=== PATIENT | male | born 1955 | race Caucasian/White ===

== ENCOUNTER 2024-03-01 11:44 | Emergency (ER) | payer MEDICARE, SELFPAY ==
[2024-03-01 11:45] VITALS: BMI 35.6
--- NOTE | 2024-03-01 11:51 | EKG_ITS ---
[facility] Test Date: 2024-03-01 Pat Name: JOAN SHAW Department: Room: - Gender: Male Slider Assembler: : 1955 Requested By: Marino Dean (COLIN) Order Number: [id number] Reading MD: Marino Dean (PAINT BRUSH MAKER) Measurements Intervals [place] Rate: 116 P: AR: QRS: -12 QRSD: 78 T: 48 QT: 297 QTc: 413 Interpretive Statements ATRIAL FIBRILLATION WITH RAPID VENTRICULAR RESPONSE ABNORMAL RHYTHM ECG No previous ECG available for comparison /store/S0/[id number]
[2024-03-01 12:02] VITALS: BP 151/86; PULSE 116; RESP 19; TEMP 36.6; O2SAT 97
--- NOTE | 2024-03-01 12:09 | XR_ITS ---
Examination: AP chest single view Technique one AP portable upright chest single view Exam date and time: March 01, 2024 1214 hours INDICATIONS: New onset atrial fibrillation today with SOB Normal heart size No pulmonary edema or pneumonia Moderate osteopenia IMPRESSION: No pneumonia or pulmonary edema
--- NOTE | 2024-03-01 12:29 | EDNOTE_ITS ---
ED General RME/HPI General Chief complaint: General Adult/Misc Complain Stated complaint: SENT IN FOR NEW A.FIB Time Seen by Provider: 03/01/24 11:49 Arrival date/time: 03/01/24 11:44 CC: A-fib new onset HPI patient was at his annual physical exam with his primary care provider who referred him to the emergency room for A-fib. Patient has no symptoms including chest pain shortness of breath difficulty breathing patient states his last exam was on January 28 when he had a normal heart rate of 89 . Patient is awake alert oriented nontoxic-appearing not in any acute distress. Related Data Home Medications ?Medication ?Instructions ?Recorded ?Confirmed acetaminophen 500 mg tablet 500 mg PO QDAY 09/02/23 09/02/23 gabapentin 800 mg tablet 800 mg PO QDAY 09/02/23 09/02/23 trazodone 50 mg tablet 50 mg PO QDAY 09/02/23 09/02/23 Previous Rx's ?Medication ?Instructions ?Recorded apixaban 5 mg tablet (Eliquis) 5 mg PO BID #30 tabs 03/01/24 metoprolol tartrate 25 mg tablet 25 mg PO BID #30 tabs 03/01/24 Allergies Allergy/AdvReac Type Severity Reaction Status Date / Time No Known Allergies Allergy Verified 03/01/24 11:46 Review of Systems Review of Systems Narrative Review of Systems: GEN: No fever, no chills, no weight loss EYES: No discharge, no visual changes, no pain HEENT: No ear pain, no congestion, no sore throat PULM: No shortness of breath, no cough, no congestion CV: No chest pain, no dyspnea on exertion, no palpitations GI: No nausea, no vomiting, no diarrhea, no pain, no constipation : No frequency, no urgency, no dysuria MUSC/SKEL: No joint pain, no back pain SKIN: No rash PSYCH: No hallucinations, no depression HEME/LYMPH: No easy bleeding or bruising tendencies NEURO: No weakness, no headache Past Medical History Past Medical History NEUROLOGIC: Positive Peripheral Neuropathy; Negative Neurological Disorders or Seizures CARDIAC: Negative Cardiac Disorders or Congestive Heart Failure RESPIRATORY: Positive Sleep Apnea (uses CPAP QHS); Negative Chronic Obstructive Pulmonary Disease (COPD) GENITOURINARY: Positive Kidney Stones (resolved); Negative Renal Disease MUSCULOSKELETAL: Positive Arthritis, Carpal Tunnel Syndrome (bilateral, trigger finger both hands) and Fractures (right ankle sx) ENDOCRINE: Negative Diabetes Mellitus Type 1 or Diabetes Mellitus Type 2 PSYCHO/SOCIAL: Negative Depression or Anxiety OTHER HISTORY: Positive Chicken Pox, Measles and Mumps; Negative Blood Transfusions or Anesthesia Reactions Social History SMOKING STATUS: Never smoker ED Exam Narrative Physical exam: [General: Obese not in any acute distress Head normocephalic HEENT: Within acceptable limits Neck is supple nontender Chest equal chest rise nontender to palpation Respiratory: Clear to auscultation no wheezes crackles or rubs CV: Rate rhythm is regular no murmurs rubs or clicks Abdomen is distended secondary to body habitus soft nontender no masses positive bowel sounds all 4 quadrants Back: No CVA tenderness no spinous process tenderness from cervical spine thoracic and lumbar spine Skin: Intact no petechiae rash induration ulceration or crepitus Extremities: Moving all extremity against resistance cap refill less than 2 seconds neurosensory intact. No lower extremity edema Neuro: Awake alert oriented x3 Glascow coma 15 no focal deficits] Course Quality Measures none Orders Category Date Time Status EKG (ED ONLY) *Do not use* NOW Care 03/01/24 11:51 Completed Insert IV NOW Care 03/01/24 12:25 Completed EKG (ED Only) Stat Exams 03/01/24 11:51 Draft XR chest 1V Stat Exams 03/01/24 12:09 Completed B-Type Natriuretic Peptide Stat Lab 03/01/24 12:42 Completed CBC Stat Lab 03/01/24 12:42 Completed Comprehensive Metabolic Panel Stat Lab 03/01/24 12:42 Completed LDH (Lactate Dehydrogenase) Stat Lab 03/01/24 12:42 Completed Magnesium Stat Lab 03/01/24 12:42 Completed Partial Thromboplastin Time Stat Lab 03/01/24 12:42 Completed Prothrombin Time with INR Stat Lab 03/01/24 12:42 Completed Troponin I Stat Lab 03/01/24 12:42 Completed Apixaban [Eliquis] Med 03/01/24 12:26 Discontinued 5 mg PO X1 ONE Metoprolol Tartrate Inj [Lopressor Inj] Med 03/01/24 12:21 Discontinued 2 mg IVP X1 ONE Metoprolol Tartrate [Lopressor] Med 03/01/24 12:21 Discontinued 25 mg PO X1 ONE Vital Signs Vital signs: Vital Signs Temperature 97.9 F 03/01/24 12:02 Pulse Rate 116 H 03/01/24 12:02 Respiratory Rate 19 03/01/24 12:02 Blood Pressure 151/86 H 03/01/24 12:02 Pulse Oximetry (%) 97 03/01/24 12:02 Oxygen Delivery Method Room Air 03/01/24 12:02 [facility] Patient data External records reviewed:: [facility] previous records Clinical information provided by:: patient Social determinants that could affect healthcare access:: none Patient has the following chronic illnesses:: Chronic back pain How is presenting disease/condition affected by chronic disease/condition?: u neffected by Evaluation data The following diagnostics were reviewed and interpreted by me:: lab results, radiology exam(s) and EKG tracing(s) Lab and/or radiology exams considered but not ordered:: EKG performed at 1158 shows a ventricular rate of 116 QRS of 70, QTc of 366 is A-fib RVR. No old EKG for comparison. Interpretation Summary: A-fib new onset Medications Medications considered but not ordered:: None Medication administrations:: Medication Administration History Discontinued Medications Apixaban (Apixaban 2.5 Mg Tablet) 5 mg PO X1 ONE Stop: 03/01/24 12:27 Last Admin: 03/01/24 12:54 Dose: 5 mg Documented By: Metoprolol Tartrate (Metoprolol Tartrate 25 Mg Tablet) 25 mg PO X1 ONE Stop: 03/01/24 12:22 Last Admin: 03/01/24 12:48 Dose: 25 mg Documented By: Metoprolol Tartrate (Metoprolol Tartrate Inj 1 Mg/Ml Amp 5 Ml) 2 mg IVP X1 ONE Stop: 03/01/24 12:22 Last Admin: 03/01/24 12:47 Dose: 2 mg Documented By: MS None Consultations Consultation(s) initiated? (list below): No Diagnosis Differential Diagnosis ED Complaint MDM: ACS MO pneumonia Most likely diagnosis given after review of the tests above:: Weakness Admission Indicated Admission indicated?: not indicated Explain why admission is indicated or not indicated:: Stable for outpatient follow-up Admission Request Was there a request for admission?: No Disposition Plan Disposition Plan: Discharge Discharge Attestation Discharge Attestation: The patient and all family members were given an opportunity to ask questions and understood the discharge instructions. Discharge instructions specifically effects, indications for sooner follow up or return to the emergency department, and the expected course of current diagnosis. Patient condition: Stable Medical Decision Making Differential Diagnosis Differential Diagnosis: ACS MO pneumonia Lab Data 03/01/24 12:42 03/01/24 12:42 Labs: Lab Results 03/01/24 Range/Units 12:42 WBC 6.4 (3.8-10.6) Thou/mm3 RBC 5.15 (4.50-5.90) Miln/mm3 Hgb 16.1 H (13.5-16.0) g/dL Hct 46.1 (41.0-53.0) % MCV 90 (80-100) fL MCH 31.3 (25.0-35.0) pg MCHC 34.9 (31.0-37.0) g/dl RDW Std Deviation 41.4 (35.1-43.9) fL Plt Count 202 (140-440) Thou/mm3 Neut % (Auto) 57 (37-80) % Lymph % (Auto) 30 (10-50) % [place] % (Auto) 10 (0-12) % Eos % (Auto) 3 (0-10) % Baso % (Auto) 0 (0-2.5) % Neut # (Auto) 3.7 (1.8-7.7) Thou/mm3 Lymph # (Auto) 1.9 (1.0-4.8) Thou/mm3 [place] # (Auto) 0.6 (0.0-0.8) Thou/mm3 Eos # (Auto) 0.2 (0.0-0.5) Thou/mm3 Baso # (Auto) 0.0 (0.0-0.2) Thou/mm3 Immature Gran # (Auto) 0.01 H (0.00-0.00) Thou/mm3 Absolute Nucleated RBC 0.00 (0.00-0.00) Thou/mm3 Immature Gran % 0 (0-0) % Nucleated RBC % 0 (0) /100 WBC PT 11.8 (9.0-12.2) Seconds INR 1.1 (0.9-1.3) APTT 25.1 (22.0-36.0) Seconds Sodium 136 (136-145) mMol/L Potassium 4.7 (3.4-5.1) mMol/L Chloride 103 (98-107) mMol/L Carbon Dioxide 25.6 (20.0-31.0) mMol/L Anion Gap 7 (7-16) BUN 16 (9-23) mg/dL Creatinine 1.2 (0.6-1.3) mg/dL Estim Creat Clear Calc 76.4 (>60) mL/min eGFR > 60 (60 - ) See Note BUN/Creatinine Ratio 13 (12-20) Ratio Glucose 113 H (74-106) mg/dL Calculated Osmolality 274 L (275-295) Calcium 9.9 (8.3-10.6) mg/dL Corrected Calcium 9.9 (8.5-10.1) mg/dL Magnesium 1.9 (1.6-2.6) mg/dL Total Bilirubin 0.7 (0.3-1.2) mg/dL AST 26 (0-34) U/L ALT 42 (10-49) U/L Alkaline Phosphatase 42 L (46-116) U/L Lactate Dehydrogenase 234 (120-246) U/L Troponin I < 0.020 (0.0-0.045) ng/mL B-Natriuretic Peptide 91 (0-100) pg/mL Total Protein 7.3 (5.7-8.2) gm/dL Albumin 4.7 (3.4-4.8) gm/dL Globulin 2.6 (2.3-3.5) gm/dL Albumin/Globulin Ratio 1.8 (1.2-2.2) Discharge Plan Plan Patient Disposition: HOME (Self Care) Patient condition on transfer: Stable Prescriptions/Referrals Prescriptions/Med Rec: New metoprolol tartrate 25 mg tablet 25 mg PO BID Qty: 30 1RF Eliquis 5 mg tablet 5 mg PO BID Qty: 30 1RF No Action trazodone 50 mg tablet 50 mg PO QDAY Hold Instructions: Resume on 09/03/23. MAY RESUME IN 24 HOURS acetaminophen 500 mg Tablet 500 mg PO QDAY Hold Instructions: Resume on 09/03/23. MAY RESUME IN 24 HOURS gabapentin 800 mg tablet 800 mg PO QDAY Patient Comments: 1 TABLET ORALLY EVERY 8 HOURS 90 DAYS Referrals: Christophe Tanner MD [Physician] - In 1 week Lisa Miller NP [Primary Care Provider] - In 1 week Problem List Clinical Impression: Atrial fibrillation with RVR Patient/Caregiver Discharge Instructions Education Materials: AFL/Afib, Calcium Channel Blockers Dc, ED Atrial Fibrillation Additional Instructions: Take the medications as prescribed follow-up with your primary care provider if there is any source of bleeding which includes bleeding from the nose from the tip of the penis, or black tarry or bright red stools from the rectum return the emergency room for reevaluation. Print Language: Honduran Stand Alone Forms: Erica Award Info., Work/School Release, Patient Portal Info Letter PA/SCREW MACHINE SET UP OPERATOR TOOL Supervising Physician PA/ERLINDA Supervising Physician: Bryan Dominguez ENP
[2024-03-01 12:47] VITALS: BP 141/91; PULSE 110
[2024-03-01] MEDS: METOPROLOL TARTRATE INJ 1 MG/ML AMP 5 ML 2 MG IVP (12:47)
[2024-03-01 12:48] VITALS: BP 141/91; PULSE 118
[2024-03-01] MEDS: METOPROLOL TARTRATE 25 MG TABLET PO (12:48)
[2024-03-01] MEDS: APIXABAN 2.5 MG TABLET 5 MG PO (12:54)
[2024-03-01 12:57] LABS: Basophils % (Auto) 0 % (0-2.5); Eosinophils # (Auto) 0.2 Thou/mm3 (0.0-0.5); Eosinophils % (Auto) 3 % (0-10); Hematocrit 46.1 % (41.0-53.0); Hemoglobin 16.1 g/dL (13.5-16.0); Immature Granulocytes % (Auto) 0 % (0-0); Immature Granulocytes Auto 0.01 Thou/mm3 (0.00-0.00); Lymphocytes # (Auto) 1.9 Thou/mm3 (1.0-4.8); Lymphocytes % (Auto) 30 % (10-50); Mean Corpuscular HGB Conc 34.9 g/dl (31.0-37.0); Mean Corpuscular Hemoglobin 31.3 pg (25.0-35.0); Mean Corpuscular Volume 90 fL (80-100); Monocytes # (Auto) 0.6 Thou/mm3 (0.0-0.8); Monocytes % (Auto) 10 % (0-12); Neutrophils # (Auto) 3.7 Thou/mm3 (1.8-7.7); Neutrophils % (Auto) 57 % (37-80); Nucleated Red Blood Cell % 0 /100 WBC (0); Platelet Count 202 Thou/mm3 (140-440); RDW Standard Deviation 41.4 fL (35.1-43.9); Red Blood Count 5.15 Miln/mm3 (4.50-5.90); White Blood Count 6.4 Thou/mm3 (3.8-10.6)
[2024-03-01 13:10] LABS: INR 1.1 (0.9-1.3); Partial Thromboplastin Time 25.1 Seconds (22.0-36.0); Prothrombin Time 11.8 Seconds (9.0-12.2)
[2024-03-01 13:19] LABS: Alanine Aminotransferase 42 U/L (10-49); Albumin, Serum 4.7 gm/dL (3.4-4.8); Albumin/Globulin Ratio 1.8 (1.2-2.2); Alkaline Phosphatase 42 U/L (46-116); Anion Gap 7 (7-16); Aspartate Amino Transferase 26 U/L (0-34); BUN/Creatinine Ratio 13 Ratio (12-20); Bilirubin,Total 0.7 mg/dL (0.3-1.2); Blood Urea Nitrogen 16 mg/dL (9-23); Calcium 9.9 mg/dL (8.3-10.6); Calcium (Corrected) 9.9 mg/dL (8.5-10.1); Carbon Dioxide 25.6 mMol/L (20.0-31.0); Chloride 103 mMol/L (98-107); Creatinine (Component) 1.2 mg/dL (0.6-1.3); Estimated Creatinine Clearance 76.4 mL/min (>60); Globulin 2.6 gm/dL (2.3-3.5); Glucose 113 mg/dL (74-106); LDH (Lactate Dehydrogenase) 234 U/L (120-246); Magnesium 1.9 mg/dL (1.6-2.6); Osmolality,Calculated 274 (275-295); Potassium 4.7 mMol/L (3.4-5.1); Sodium 136 mMol/L (136-145); Total Protein 7.3 gm/dL (5.7-8.2); Troponin I < 0.020 ng/mL (0.0-0.045); eGFR > 60 See Note
[2024-03-01 13:49] LABS: B-Type Natriuretic Peptide 91 pg/mL (0-100)
[2024-03-01 14:00] VITALS: BP 112/72; PULSE 80; RESP 17; O2SAT 97
== END 2024-03-01 15:22 | disposition home or self-care (01) ==
PROVIDERS: Registered Nurse General Practice; Emergency Provider Emergency Medicine; PCP Nurse Practitioner Family
DX: I48.91 Unspecified atrial fibrillation (principal)
CPT/HCPCS: 36415; 71045; 80053; 80307; 81001; 83615; 83735; 83880; 84484; 85025; 85610; 85730; 93005; 96374; 99284; J3490; A9270

== ENCOUNTER → 2024-03-09 | Outpatient (CLI) | payer MEDICARE, SELFPAY ==
[2024-03-09 13:52] LABS: Troponin I < 0.020 ng/mL (0.0-0.045)
== END | disposition home or self-care (01) ==
LOC: COPL 12:09
PROVIDERS: PCP Nurse Practitioner Family; Referring Provider Nurse Practitioner Family; Visit Provider Nurse Practitioner Family
DX: I48.91 Unspecified atrial fibrillation (principal)
CPT/HCPCS: 36415; 84484

== ENCOUNTER 2024-04-14 09:01 | Outpatient (CLI) | payer MEDICARE, SELFPAY ==
--- NOTE | 2024-04-13 15:48 | EKG_ITS ---
[facility] Test Date: 2024-04-13 Pat Name: JOAN SHAW Department: Room: - Gender: Male Auto Camp Attendant: RICHA : 1955 Requested By: Christophe Tanner Order Number: [id number] Reading MD: Christophe Tanner Measurements Intervals [place] Rate: 84 P: [place]: QRS: 34 QRSD: 84 T: 47 QT: 356 QTc: 421 Interpretive Statements ATRIAL FIBRILLATION ABNORMAL RHYTHM ECG Compared to ECG 03/01/2024 11:58:05 No significant changes /store/S0/[id number]/[id number].pdf
[2024-04-13 16:51] LABS: Basophils % (Auto) 0 % (0-2.5); Eosinophils # (Auto) 0.2 Thou/mm3 (0.0-0.5); Eosinophils % (Auto) 3 % (0-10); Hematocrit 45.5 % (41.0-53.0); Immature Granulocytes % (Auto) 0 % (0-0); Immature Granulocytes Auto 0.02 Thou/mm3 (0.00-0.00); Lymphocytes # (Auto) 2.1 Thou/mm3 (1.0-4.8); Lymphocytes % (Auto) 28 % (10-50); Mean Corpuscular HGB Conc 35.2 g/dl (31.0-37.0); Mean Corpuscular Hemoglobin 31.2 pg (25.0-35.0); Mean Corpuscular Volume 89 fL (80-100); Monocytes # (Auto) 0.8 Thou/mm3 (0.0-0.8); Monocytes % (Auto) 11 % (0-12); Neutrophils # (Auto) 4.3 Thou/mm3 (1.8-7.7); Neutrophils % (Auto) 58 % (37-80); Nucleated Red Blood Cell % 0 /100 WBC (0); Platelet Count 202 Thou/mm3 (140-440); RDW Standard Deviation 39.5 fL (35.1-43.9); Red Blood Count 5.13 Miln/mm3 (4.50-5.90); White Blood Count 7.5 Thou/mm3 (3.8-10.6)
[2024-04-13 17:11] LABS: Partial Thromboplastin Time 24.8 Seconds (22.0-36.0); Prothrombin Time 11.4 Seconds (9.0-12.2)
[2024-04-13 17:15] LABS: Anion Gap 5 (7-16); BUN/Creatinine Ratio 17 Ratio (12-20); Blood Urea Nitrogen 24 mg/dL (9-23); Calcium 9.9 mg/dL (8.3-10.6); Carbon Dioxide 34.6 mMol/L (20.0-31.0); Chloride 99 mMol/L (98-107); Creatinine (Component) 1.4 mg/dL (0.6-1.3); Glucose 88 mg/dL (74-106); Osmolality,Calculated 280 (275-295); Potassium 4.5 mMol/L (3.4-5.1); Sodium 139 mMol/L (136-145); eGFR 54 See Note
[2024-04-14] VITALS (15 sets, daily range): BP systolic 103–135; BP diastolic 59–85; PULSE 60–85; RESP 10–19; TEMP 36.2–36.8; O2SAT 90–99; BMI 35.2
[2024-04-14] MEDS: APIXABAN 2.5 MG TABLET 5 MG PO (09:30)
--- NOTE | 2024-04-14 10:30 | ECHO_ITS ---
Transesophageal Echo Report Ht (in): 73 Wt (lb): 260 Exam Location: Can Intake Worker Status: Outpatient Recyclable Materials Sorter: Swati Santos Indications: Procedure Performed: BP: 125 / 63 HR: 76 Contrast: Agitated Saline Rhythm: Atrial fibrillation Technical Quality: Fair Total Dose(mL): Medications The patient is medicated with 4mg of intravenous Versed adn 100mcg of intravenous Fentanyl. Complications There are no complications prior to, during of in recovery from the transesophageal echocardiogram. FINDINGS Left Ventricle Normal left ventricular size, wall thickness, systolic function with no obvious regional wall motion abnormalities. The ejection fraction is visually estimated at 55-60%. Right Ventricle The right ventricle is normal in size and systolic function. Left Atrium The left atrium is normal. Right Atrium The right atrium is normal. Atrial Appendages The left atrial appendage appears normal with no evidence for thrombus. Atrial Septum The interatrial septum appears normal with no evidence of a shunt. Aorta The aorta is normal. Mitral Valve The mitral valve is normal. There is mild mitral valve regurgitation. Aortic Valve The aortic valve is trileaflet and normal. There is no significant aortic valve regurgitation. Tricuspid Valve The tricuspid valve is normal. There is trace tricuspid valve regurgitation. Pulmonic Valve The pulmonic valve is normal. There is mild pulmonic valve regurgitation. Vessels The pulmonary artery appears normal. The inferior vena cava pulmonary and hepatic veins appear pedro l. Pericardium The pericardium is normal. There is no significant pericardial effusion. CONCLUSIONS Indication: Afib and cardioversion Negative bubble study. No evidence of PFO/ ASD or LA/ALEXY thrombus Normal LV size and function. Estimated EF 55-60% Normal RV size and function Mild MR, PI. Trace TR. Systolic blunting of pulmonary james flow. Christophe Tanner (Electronically Signed) Final Date: 14 April 2024 18:54
[2024-04-14] MEDS: MIDAZOLAM INJ 1 MG/ML VIAL 2 ML 6 MG IV (10:35)
[2024-04-14] MEDS: BENZOCAINE 20% (Hurricaine) SPRAY 1 DOSE TOP (10:35)
[2024-04-14] MEDS: fentaNYL CIT INJ 50 mCg/ML AMP 2ML 125 MCG IVP (10:35)
--- NOTE | 2024-04-14 11:10 | ESOP_ITS ---
Procedure Direct current cardioversion for uncontrolled atrial Fibrillation Moderate Conscious Sedation with Versed and Fentanyl Date of Procedure 04/14/24 Pre Op Diagnosis Paroxysmal Atrial Fibrilllation Indication Paroxysmal Atrial Fibrilllation Post Op Diagnosis Normal Sinus Rhythm restored. Procedure Description Patient was in atrial fibrillation and ventricular rate was controlled came in for elective cardioversion. Decision was made to perform cardioversion for the patient after performing it transesophageal echocardiogram as patient has been having significant symptoms from the Afib. Transesophageal echocardiogram was completed today and did not show any significant LA or ALEXY thrombus.? Please see HELIO report from today for rest of the findings.? Patient was already on anticoagulation with eliquis. Patient was taken to the cathode ray tube salvage processor for the HELIO and cardioversion, both anterior and posterior pads were placed.? Patient was given moderate sedation and received a total of 2 mg of Versed and 25 mcg of fentanyl prior to the procedure to provide him enough for sedation. A biphasic defibrillator was used.? A single 120 J synchronized shock was given and the patient converted successfully into normal sinus rhythm.? No complications during or after the procedure.? Patient is doing well.? His heart rate was stable between 50 to 70 bpm and appears to be normal sinus rhythm on the telemetry.? Recommend to perform an EKG to document normal sinus rhythm postprocedure.? Patient will be monitored in the cathode ray tube salvage processor for the next 1-2 hours and will be discharged home if hemodynamically stable. Will adjust his medications for atrial fibrillationas outpatient. Estimated Blood Loss 0 Specimen(s) Specimen(s): None Conclusion Successful direct current cardioversion of Atrial Fibrillation to Normal Sinus Rhythm Recommendation Continue metoprolol XL 50 mg Q Day if BP stable. Continue Eliquis 5 mg BID for anticaogulation. EKG to document NSR post procedure. Surgical Staff Surgeon: Christophe Tanner MD
--- NOTE | 2024-04-14 11:44 | EKG_ITS ---
[facility] Test Date: 2024-04-14 Pat Name: JOAN SHAW Department: Room: - Gender: Male Cap Cutter: HERIBERTO : 1955 Requested By: Christophe Tanner Order Number: [id number] Reading MD: Christophe Tanner Measurements Intervals [place] Rate: 60 P: 79 [place]: 236 QRS: 3 QRSD: 90 T: 6 QT: 421 QTc: 421 Interpretive Statements SINUS RHYTHM WITH FIRST DEGREE AV BLOCK Compared to ECG 04/13/2024 16:04:56 First degree AV block now present Atrial fibrillation no longer present /store/S0/[id number]/[id number]
== END 2024-04-14 10:15 | disposition home or self-care (01) ==
LOC: S2EX 09:01 → SCCL 09:07
PROVIDERS: PCP Nurse Practitioner Family; Referring Provider Internal Medicine Cardiovascular Disease; Visit Provider Internal Medicine Cardiovascular Disease
PROC: 5A2204Z Restoration of Cardiac Rhythm, Single (ICD-10-PCS; CPT 92960; principal; 2024-04-14 10:30)
PROC: (CPT 93312; 2024-04-14 10:30)
DX: I48.91 Unspecified atrial fibrillation (principal); Z01.810 Encounter for preprocedural cardiovascular examination
CPT/HCPCS: 92960; 36415; 80048; 83735; 85025; 85610; 85730; 93005; 93312; 99152; J2250; J3010; A9270

== ENCOUNTER → 2024-07-05 | Outpatient (CLI) | payer MEDICARE, SELFPAY ==
[2024-07-05 17:03] LABS: Glucose Estimated Average 117 mg/dL (80-131); Hemoglobin A1C 5.7 % Hgb (4.8-6.0)
[2024-07-06 06:35] LABS: Vitamin B12 831 pg/mL (211-911); Vitamin D 25 Hydroxy Total 44.6 ng/mL (7.3-40.2)
== END | disposition home or self-care (01) ==
LOC: COPL 15:57
PROVIDERS: PCP Nurse Practitioner Family; Referring Provider Psychiatry & Neurology Neurology; Visit Provider Psychiatry & Neurology Neurology
DX: R20.2 Paresthesia of skin (principal)
CPT/HCPCS: 36415; 82306; 82607; 83036

== ENCOUNTER → 2024-08-18 | Outpatient (CLI) | payer MEDICARE, SELFPAY ==
[2024-08-18 11:25] LABS: Collection Type, Urine Clean Catch; RBC,Urine 0 /hpf (0-3); Squamous Epithelial Cell,Urine 0 /hpf (0-5)
[2024-08-18 11:41] LABS: Bilirubin,Urine Negative (Negative); Blood,Urine Negative (Negative); Clarity,Urine Clear (Clear/Hazy); Color,Urine Lt-Yellow (Lt Yel-Yel); Culture Indicated,Urine Not Indicated; Glucose, Urine Negative (Negative); Ketones,Urine Negative (Negative); Leukocyte Esterase,Urine Negative (Negative); Nitrite,Urine Negative (Negative); Protein,Urine Negative (Neg - Trace); Specific Gravity,Urine 1.023 (1.001-1.035); Urobilinogen,Urine Negative mg/dL (0.0-1.0); WBC,Urine < 1 /hpf (0-5)
[2024-08-18 11:41] LABS: Basophils % (Auto) 0 % (0-2.5); Eosinophils # (Auto) 0.2 Thou/mm3 (0.0-0.5); Eosinophils % (Auto) 3 % (0-10); Hematocrit 43.4 % (41.0-53.0); Hemoglobin 15.8 g/dL (13.5-16.0); Immature Granulocytes % (Auto) 0 % (0-0); Immature Granulocytes Auto 0.02 Thou/mm3 (0.00-0.00); Lymphocytes # (Auto) 1.5 Thou/mm3 (1.0-4.8); Lymphocytes % (Auto) 28 % (10-50); Mean Corpuscular HGB Conc 36.4 g/dl (31.0-37.0); Mean Corpuscular Hemoglobin 32.6 pg (25.0-35.0); Mean Corpuscular Volume 90 fL (80-100); Monocytes # (Auto) 0.6 Thou/mm3 (0.0-0.8); Monocytes % (Auto) 11 % (0-12); Neutrophils # (Auto) 3.1 Thou/mm3 (1.8-7.7); Neutrophils % (Auto) 57 % (37-80); Nucleated Red Blood Cell % 0 /100 WBC (0); Platelet Count 170 Thou/mm3 (140-440); RDW Standard Deviation 40.2 fL (35.1-43.9); Red Blood Count 4.85 Miln/mm3 (4.50-5.90); White Blood Count 5.4 Thou/mm3 (3.8-10.6)
[2024-08-18 11:56] LABS: Prostate Specific Antigen 0.62 ng/mL (0-4.00)
[2024-08-18 11:59] LABS: Alanine Aminotransferase 33 U/L (10-49); Albumin, Serum 4.3 gm/dL (3.4-4.8); Albumin/Globulin Ratio 1.7 (1.2-2.2); Alkaline Phosphatase 37 U/L (46-116); Anion Gap 10 (7-16); Aspartate Amino Transferase 28 U/L (0-34); BUN/Creatinine Ratio 14 Ratio (12-20); Bilirubin,Total 0.9 mg/dL (0.3-1.2); Blood Urea Nitrogen 17 mg/dL (9-23); Calcium 8.8 mg/dL (8.3-10.6); Calcium (Corrected) 8.8 mg/dL (8.5-10.1); Carbon Dioxide 28.1 mMol/L (20.0-31.0); Cardiac Risk Estimate 4.1 RATIO (4.0-6.7); Chloride 104 mMol/L (98-107); Cholesterol 145 mg/dL (132-200); Creatinine (Component) 1.2 mg/dL (0.6-1.3); Globulin 2.6 gm/dL (2.3-3.5); Glucose 122 mg/dL (74-106); HDL Cholesterol 35 mg/dL (40-60); LDL Cholesterol,Calculated 84 mg/dL (0-130); Osmolality,Calculated 285 (275-295); Potassium 4.4 mMol/L (3.4-5.1); Sodium 142 mMol/L (136-145); Thyroid Stimulating Hormone 0.97 uIU/mL (0.55-4.78); Total Protein 6.9 gm/dL (5.7-8.2); Triglycerides 132 mg/dL (30-150); eGFR > 60 See Note
== END | disposition home or self-care (01) ==
LOC: COPL 10:29
PROVIDERS: PCP Nurse Practitioner Family; Referring Provider Nurse Practitioner Family; Visit Provider Nurse Practitioner Family
DX: Z00.00 Encounter for general adult medical examination without abnormal findings (principal); I10 Essential (primary) hypertension; E78.1 Pure hyperglyceridemia
CPT/HCPCS: 36415; 80053; 80061; 81001; 84153; 84443; 85025

== ENCOUNTER 2024-09-15 10:02 | Day surgery (SDC) | payer MEDICARE, SELFPAY ==
[2024-09-13 15:19] VITALS: BMI 34.2
--- NOTE | 2024-09-14 07:00 | EKG_ITS ---
[facility] Test Date: 2024-09-14 Pat Name: JOAN SHAW Department: Room: - Gender: Male Immigration Inspector: JUANCARLOS : 1955 Requested By: Christophe Tanner Order Number: [id number] Reading MD: Christophe Tanner Measurements Intervals [place] Rate: 64 P: 52 MO: 226 QRS: -7 QRSD: 81 T: 32 QT: 397 QTc: 412 Interpretive Statements SINUS RHYTHM WITH FIRST DEGREE AV BLOCK Compared to ECG 04/14/2024 11:54:02 No significant changes /store/S0/[id number]/[id number].pdf
[2024-09-14 15:34] LABS: Anion Gap 5 (7-16); BUN/Creatinine Ratio 9 Ratio (12-20); Blood Urea Nitrogen 14 mg/dL (9-23); Calcium 9.6 mg/dL (8.3-10.6); Carbon Dioxide 34.1 mMol/L (20.0-31.0); Chloride 103 mMol/L (98-107); Creatinine (Component) 1.5 mg/dL (0.6-1.3); Estimated Creatinine Clearance 60.8 mL/min (>60); Glucose 84 mg/dL (74-106); Osmolality,Calculated 282 (275-295); Potassium 4.9 mMol/L (3.4-5.1); Sodium 142 mMol/L (136-145); eGFR 49 See Note
[2024-09-14 15:35] LABS: Basophils % (Auto) 0 % (0-2.5); Eosinophils # (Auto) 0.2 Thou/mm3 (0.0-0.5); Eosinophils % (Auto) 2 % (0-10); Hematocrit 44.8 % (41.0-53.0); Hemoglobin 16.5 g/dL (13.5-16.0); Immature Granulocytes % (Auto) 0 % (0-0); Immature Granulocytes Auto 0.01 Thou/mm3 (0.00-0.00); Lymphocytes % (Auto) 31 % (10-50); Mean Corpuscular HGB Conc 36.8 g/dl (31.0-37.0); Mean Corpuscular Hemoglobin 32.8 pg (25.0-35.0); Mean Corpuscular Volume 89 fL (80-100); Monocytes # (Auto) 0.9 Thou/mm3 (0.0-0.8); Monocytes % (Auto) 14 % (0-12); Neutrophils # (Auto) 3.3 Thou/mm3 (1.8-7.7); Neutrophils % (Auto) 52 % (37-80); Nucleated Red Blood Cell % 0 /100 WBC (0); Platelet Count 227 Thou/mm3 (140-440); RDW Standard Deviation 39.4 fL (35.1-43.9); Red Blood Count 5.03 Miln/mm3 (4.50-5.90); White Blood Count 6.4 Thou/mm3 (3.8-10.6)
[2024-09-14 15:55] LABS: Partial Thromboplastin Time 24.5 Seconds (22.0-36.0); Prothrombin Time 11.1 Seconds (9.0-12.2)
[2024-09-15] VITALS (17 sets, daily range): BP systolic 120–151; BP diastolic 59–89; PULSE 59–70; RESP 11–24; TEMP 36.2–37.2; O2SAT 96–99; BMI 34.0
--- NOTE | 2024-09-15 12:28 | PC.NURSE ---
1228 patient is awake, alert, breathing unlabored, s/p LHC by Dr. hall, TR band present to right wrist, no bleeding or hematoma noted, Report received from Courtney LUCAS, patient to recover for 4 hours and 1hr post TR band removal. patient to be started on aspirin and Brilinta.
--- NOTE | 2024-09-15 14:15 | PC.NURSE ---
spoke to Dr. hall's office staff who said they are calling in aspirin and brilinta to patient's pharmacy in [facility]
--- NOTE | 2024-09-15 14:55 | PC.NURSE ---
8754 Dr Tanner at bedside talking to patient and patient's family by phone, MD answer all questions, ok to discharge patient home 1hr post TR band removal
--- NOTE | 2024-09-15 15:13 | PC.NURSE ---
1425 1ml air removed from TR band since hemostasis time 1225. 1505 TR band removed, no bleeding or hematoma noted, site covered with tegaderm and coban
--- NOTE | 2024-09-15 15:27 | ESOP_ITS ---
Cardiac Cath Procedure Procedure Name Date of procedure: 09/15/2024 PROCEDURE PERFORMED: 1. Successful complex PCI performed of the proximal to mid LAD with a 3.0 x 12 mm Tyler Medtronic stent with excellent results and no complications. 2. Left heart cardiac catheterization including right, left coronary angiograms and left ventriculogram 3. Ultrasound-guided access of the right radial artery 4. Conscious sedation for 30 minutes SUPERVISOR DISPLAY FABRICATION: Christophe Tanner MD Procedure Narrative HISTORY AND INDICATIONS: 68 year old male with PMH A-fib, chronic diastolic CHF, mild TR, mild PI, AMY (pressure of 10), osteoarhtritis, and peripheral neuropathy. Patient had isch emic cardiac work up as he was complaining of chest pain. NST showed abnormal myocardial perfusion study as there was an area of decreased uptake in the inferior and apical segments with stress and improves with rest, indicating ischemia. The post stress ejection fraction is measured at 55%. All the risk benefits and alternatives of left heart cardiac attrition were explained in detail including the risk of bleeding, heart attack, stroke and in detail. Patient agreeable for the procedure and provided the consent. H&P updated. DESCRIPTION OF PROCEDURE: The patient was brought to the cardiac catheterization lab analysis the precautions were followed. Patient was given 1 Mg of Versed and 50 mcg of fentanyl for moderate conscious sedation. 2 mL of lidocaine was given in the right wrist. The right radial artery was accessed via the ultrasound guidance as well as micropuncture technique. A 6 Bhutanese glide sheath was introduced. We then used a 6 Bhutanese TIG 4 catheter to perform the left coronary angiogram as well as a left ventriculogram which showed the following findings. A JR 3.5 SH sidehole catheter was used for right coronary angiogram as well as performing the PCI of the ostial RCA. 1. Left ventricular end-diastolic pressure was 10 mmHg. There was no significant transvalvular aortic gradient. 2. Left main is a large sized artery with no significant disease 3. LAD is a large size artery with severe 70 to 80% stenosis in the proximal to mid LAD medium since diagnosis without any disease. 4. LCx is a large size artery with small OM1 and medium sized OM 2 without any significant disease. 5. RCA is a large size artery with a medium size RPDA and small to medium RPL without any significant disease. Patient has severe 70 to 80% stenosis of the mid LAD and the stress test was positive in the apical area and decision was made to perform intervention. Intervention: A 6 Bhutanese EBU 3.5 catheter was initially used but could not engage the left main artery and then we used an EBU 3.75 to engage the left main artery. Patient was given weight-based heparin and ACT was greater than 300 also the procedure. A run-through guidewire was used to cross the lesion in the proximal to mid LAD without any complications. We used 2.5 x 10 mm semicompliant Medtronic balloon to perform the predilatation. Next a 3.0 x 12 mm Medtronic [place] stent was deployed successfully at 12 srini and 15 srini for a total of 45 seconds. Excellent results with SIXTO-3 flow was noted. No other complications. Final angiographic pictures were taken and all interventional equipment was removed. ACC data: Preprocedure: Proximal to mid LAD with 80% stenosis with SIXTO-3 flow Post procedure: Proximal to mid LAD with 0% residual stenosis with SIXTO-3 flow. Patient was started on aspirin and Brilinta 325 mg and 180 mg in the Pediatric Hospitalist. Patient recommended to continue with both medications. A radial band was used to achieve the hemostasis of the right radial artery access. Patient will be monitored in the cardiac Pediatric Hospitalist for the next 2 to 3 hours and will be discharged home later if hemodynamically stable. Complications: None Specimens: None Blood loss: Estimated 10 ML Summary/findings: 1. LHC showed severe 70 to 80% stenosis of the proximal to mid LAD. Rest of the arteries did not show any significant stenosis. 2. LVEDP was normal at 15 mmHg. There was no significant transvalvular aortic gradient. 3. Successful complex PCI performed of the proximal to mid LAD with a 3.0 x 12 mm Tyler Medtronic stent with excellent results and no complications. Recommendations: 1. Recommended dual antiplatelet therapy with aspirin 81 mg once daily lifetime and Brilinta 90 mg twice daily for at least 1 year. High intensity statin and beta-blockers to be continued 2. Recommend aggressive risk factor modification 3. Patient recommended not to lift any weight more than 5 to 10 pounds for the next 7 days and follow-up with me in the office in 7 days. Christophe Tanner MD Interventional Cardiology.
--- NOTE | 2024-09-15 16:11 | PC.NURSE ---
1610 patient is awake, alert, breathing unlabored, dressing to right wrist dry with no bleeding or hematoma, patient able to tolerate food tray with no nausea or vomiting, able to ambulate to bathroom and void, meets discharge criteria, discharge instructions given to patient and spouse Kasey, patient discharged home in wheelchair with all belongings including home medications. Patient and spouse aware to pick up worker new prescription at pharmacy.
== END 2024-09-15 16:10 | disposition home or self-care (01) ==
LOC: SCCL 10:02
PROVIDERS: PCP Nurse Practitioner Family; Referring Provider Internal Medicine Cardiovascular Disease; Visit Provider Internal Medicine Cardiovascular Disease
PROC: (CPT 93458; principal; 2024-09-15 11:30)
DX: I25.119 Atherosclerotic heart disease of native coronary artery with unspecified angina pectoris (principal); I48.0 Paroxysmal atrial fibrillation; I11.0 Hypertensive heart disease with heart failure; I50.32 Chronic diastolic (congestive) heart failure; E66.9 Obesity, unspecified; G47.33 Obstructive sleep apnea (adult) (pediatric); I07.1 Rheumatic tricuspid insufficiency; I37.1 Nonrheumatic pulmonary valve insufficiency; M19.90 Unspecified osteoarthritis, unspecified site; G62.9 Polyneuropathy, unspecified; Z01.810 Encounter for preprocedural cardiovascular examination
CPT/HCPCS: 93458; C9600; 36415; 80048; 85025; 85347; 85610; 85730; 93005; 99152; 99153; A4649; A4699; C1725; C1769; C1874; C1887; C1894; J0153; J0171; J0282; J0461; J1643; J2250; J2310; J2371; J3010; J3490; A9270; J2305